=== PATIENT | female | born 1995 | race African-American/Black ===

== ENCOUNTER 2017-05-27 16:07 | Emergency (ER) | payer MEDICAID ==
[~2017-05-27] VITALS: Ht 165.1 cm; Wt 52.0 kg
[2017-05-27 23:31] VITALS: BP 102/66
== END 2017-05-27 23:50 | disposition home or self-care (01) ==
LOC: ER 20:36
DX: J02.0 Streptococcal pharyngitis (principal); F17.200 Nicotine dependence, unspecified, uncomplicated
CPT/HCPCS: 99283

== ENCOUNTER 2022-02-15 19:12 | Emergency (ER) | payer MEDICAID ==
[~2022-02-15] VITALS: Ht 162.6 cm; Wt 51.0 kg
[2022-02-15 19:20] VITALS: BP 144/89
[2022-02-15] MEDS ORDERED: ACETAMINOPHEN 325MG TABLET PO ONE (22:30)
[2022-02-15] MEDS ORDERED: CARB-274 EACH EAR (22:59)
== END 2022-02-16 01:00 | disposition home or self-care (01) ==
LOC: ER 19:12
DX: B34.9 Viral infection, unspecified (principal); Z20.822 Contact with and (suspected) exposure to COVID-19
CPT/HCPCS: 87426; 87804; 99283; C9803